=== PATIENT | male | born 1955 | race Caucasian/White ===

== ENCOUNTER 2016-07-01 12:53 | Day surgery (SDC) | payer OTHER ==
[~2016-07-01] VITALS: Ht 182.9 cm; Wt 92.0 kg
[~2016-07-01 12:53] MED LIST: ACCUCHECK; AFRIN15 ML NS; ALBUTEROL SULF8.5 GM IH; ALLERGY25 M2 PO; AMARYL2 MG PO; AMBIEN CR12.5 MG PO; AMBIEN10 M1 PO; ASPIR 8181 M1 PO; ASPIR-LOW81 MG PO; ASPIRIN E.C.81 M2 PO; ASPIRIN81 M1 PO; ATRIPLA1 TAB PO; AVENTYL,PAMELOR50 MG PO; Aspirin E.C. PO; Atripla PO; BACTRIM DS PO; BACTRIM,SEPT1 TABLET PO; BOTOX100 UNITS IJ; CARAFATE1 GM PO; CARBIDOPA-LEVO1 EAC7 PO; CARBIDOPA/LEVO1 EACH PO; CLOBETASOL TP; COMBIVENT RESPIM4 GM IH; CRESTOR5 MG PO; Chronulac,Cephulac,E PO; Combivent IH; DIAZEPAM5 MG PO; DuoNeb IH; EFFEXOR XR150 MG PO; EMBELINE15 GM; ENDOCET 10-3251 EACH PO; Ecotrin PO; FISH OIL 1,0001 EAC7 PO; GLIMEPIRIDE1 MG PO; GLIMEPIRIDE2 MG PO; HALOBETASOL PROP; HYDROCHLOROTHIA25 MG PO; HYDROXYZINE HCL50 MG PO; Hydrodiuril,Oretic,E PO; IBUPROFEN800 MG PO; IMITREX100 MG PO; ISENTRESS400 MG PO; KADIAN10 MG PO; KENLAOG,ARISTOC60 ML TP; KEPPRA500 MG PO; KETOCONAZOLE120 ML TP; KLOR-CON 88 ME1 PO; KLOR-CON 88 MEQ PO; LANTUS 10100 UNITS/ SC; LANTUS 3 M100 UNITS1 SC; LEVAQUIN750 MG PO; LEVOTHROID,SY0.05 MG PO; LEVOTHYROXINE50 MCG PO; LIDODERM 5% P1 PATCH TD; LOPERAMIDE2 M1 PO; LOPERAMIDE2 MG PO; LOPRESSOR12.5 MG PO; Levaquin PO; Levothroid,Synthroid PO; METFORMIN HCL500 MG PO; METHADONE5 MG; METOPROLOL SUCC25 MG PO; MOTRIN800 MG PO; MS CONTIN,ORAMO15 M1 PO; MYCELEX15 GM TP; Methadone PO; Motrin PO; NATALCARE PLUS1 EACH PO; NEURONTIN400 MG PO; NIZORAL 2% CREA15 GM PO; NIZORAL SHAMPO120 ML TP; NORTRIPTYLINE H75 MG PO; NORVIR100 MG PO; Neurontin PO; OMEGA 3,6,9 PO; OXECTA5 MG PO; OXYCODONE HCL5 MG PO; OXYCODONE5 MG PO; PRAVACHOL40 M1 PO; PREDNISONE20 MG PO; PREZCOBIX 8001 EACH PO; PREZISTA800 MG PO; PRILOSEC20 MG PO; PRILOSEC40 MG PO; PRINIVIL10 MG PO; PROAIR HFA8.5 GM IH; PROZAC20 MG PO; PROZAC40 MG PO; RENA-VITE RX T1 EACH PO; REQUIP XL4 MG PO; REQUIP1 MG PO; REQUIP3 MG PO; REQUIP4 MG PO; ROCALTROL0.5 MCG PO; ROPINIROLE HCL4 MG PO; Requip PO; SEROQUEL XR150 MG PO; SEROQUEL XR50 MG PO; SERTRALINE HCL100 MG PO; SINEMET 25-1001 EACH PO; SPIRIVA1 INHALATI IH; SULFAMETHOXAZO1 EAC1 PO; TEMOVATE 0.05%30 GM TP; TOPIRAMATE25 MG PO; TRAMADOL HCL50 MG PO; TRILEPTAL300 MG PO; TRUVADA1 TABLET PO; Temovate 0.05% Cream TP; ULTRAVATE15 G1 TP; VALIUM10 MG PO; VALIUM5 MG PO; VENLAFAXINE225 MG PO; VIAGRA100 MG PO; VITAMIN D12 PO; VITAMIN D2400 UNIT PO; VOL-CARE PO; Vitamin B-12 PO; XANAX0.5 MG PO; Xanax PO; ZESTRIL,PRINIVI10 M1 PO; ZESTRIL2.5 MG PO; ZOCOR20 MG PO; ZOCOR5 MG PO; ZOLPIDEM TART12.5 MG PO; Zestril,Prinivil PO; [UNRECOGNIZED DRUG - OTHER]; [UNRECOGNIZED DRUG - OTHER]; oxyCODONE PO
[2016-07-01 13:58] LABS: POINT-OF-CARE METER ID UU14174212
== END 2016-07-01 14:46 | disposition home or self-care (01) ==
LOC: PAIN 12:53 → SDC 13:15 → PAIN 14:46
PROVIDERS: Anesthesiology Pain Medicine
DX: M47.896 Other spondylosis, lumbar region (principal); M51.26 Other intervertebral disc displacement, lumbar region; M54.16 Radiculopathy, lumbar region; F41.1 Generalized anxiety disorder; M79.1 Myalgia; I10 Essential (primary) hypertension; G62.9 Polyneuropathy, unspecified; Z79.891 Long term (current) use of opiate analgesic; M43.02 Spondylolysis, cervical region
CPT/HCPCS: 82948; J1030; J2250; J3010; S0020

== ENCOUNTER 2016-07-08 08:54 | Day surgery (SDC) | payer OTHER ==
[~2016-07-08] VITALS: Ht 182.9 cm; Wt 91.2 kg
[2016-07-08 10:31] LABS: POINT-OF-CARE METER ID UU14174212
== END 2016-07-08 11:15 | disposition home or self-care (01) ==
LOC: PAIN 08:54
PROVIDERS: Anesthesiology Pain Medicine
PROC: 015B3ZZ Destruction of Lumbar Nerve, Percutaneous Approach (ICD-10-PCS; principal; 2016-07-08)
DX: M47.816 Spondylosis without myelopathy or radiculopathy, lumbar region (principal); M51.36 Other intervertebral disc degeneration, lumbar region; Z79.891 Long term (current) use of opiate analgesic; M51.26 Other intervertebral disc displacement, lumbar region; M54.16 Radiculopathy, lumbar region; G62.9 Polyneuropathy, unspecified; Z87.891 Personal history of nicotine dependence; B20 Human immunodeficiency virus [HIV] disease; I10 Essential (primary) hypertension; Z86.73 Personal history of transient ischemic attack (TIA), and cerebral infarction without residual deficits; Z86.19 Personal history of other infectious and parasitic diseases; F10.21 Alcohol dependence, in remission; Z88.8 Allergy status to other drugs, medicaments and biological substances
CPT/HCPCS: 82948; J1030; J2250; J3010; S0020

== ENCOUNTER 2016-12-03 16:39 | Inpatient (IN) | payer OTHER ==
[~2016-12-03] VITALS: Ht 182.9 cm; Wt 90.8 kg
[2016-12-03 17:36] LABS: EOSINOPHIL (%) 0 % (0-5); HEMATOCRIT 36.2 % (38.0-50.0); IMMATURE GRANULOCYTE (%) 0.7 % (0.0-0.7); INSTRUMENT ABS NEUTROPHIL CT 3.9 K/uL; LYMPHOCYTE COUNT 0.4 K/uL (1.0-2.8); MCH 31.8 PG (29.0-34.0); MCHC 34.3 G/DL (30.0-36.0); MCV 92.8 FL (86-99); MEAN PLAT.VOLUME 11.3 uM^3 (9.0-12.4); MONOCYTE (%) 1.6 % (3-12); MONOCYTE COUNT 0.1 K/uL (0-0.8); NEUTROPHIL (%) 89.1 % (45-76); NEUTROPHIL COUNT 3.9 K/uL (1.8-6.4); PLATELET COUNT 81 K/uL (156-360); RBC DIS.WIDTH-CV 12.7 % (11.8-14.6); RBC DIS.WIDTH-SD 42.6 % (39-53); WHITE BLOOD COUNT 4.4 K/uL (4.1-10.2)
[2016-12-03 17:48] LABS: INTER. NORMALIZED RATIO 1.2; PROTHROMBIN TIME 13.7 SEC (10.2-12.9)
[2016-12-03 17:51] LABS: CHLORIDE 107 mEq/L (99-109); POTASSIUM 4.3 mEq/L (3.7-5.4); PTT 30.2 SEC (25-37); SODIUM 137 mEq/L (136-147)
[2016-12-03 17:55] LABS: ANION GAP 10 MEQ/L (2-14)
[2016-12-03 17:56] LABS: TOTAL BILIRUBIN 0.7 mg/dL (0.0-1.0)
[2016-12-03 17:57] LABS: ALKALINE PHOSPHATASE 56 IU/L (3-129); GFR ESTIMATE (CALCULATED) > 59 mL/min/
[2016-12-03 17:58] LABS: UREA NITROGEN (BUN) 17 mg/dL (9-23)
[2016-12-03 18:01] LABS: GLUCOSE 428 mg/dL (70-99); LIPASE 33 U/L (1.0-51.0); TROP-I INTERPRETATION NEGATIVE; TROPONIN-I 0.02 ng/mL (0.0-0.30)
[2016-12-03 19:53] LABS: POINT-OF-CARE METER ID UU14100415
[2016-12-03] MEDS ORDERED: BUSPAR15 MG PO (20:37)
[2016-12-03] MEDS ORDERED: FLEXERIL10 MG PO (20:38)
[2016-12-03] MEDS ORDERED: TOPAMAX100 MG PO (20:41)
[2016-12-03] MEDS ORDERED: UREA198.6 GM TP (20:41)
[2016-12-03] MEDS ORDERED: DUONEB 2.5-0.5 M3 ML AEROSOL (20:42)
[2016-12-03] MEDS ORDERED: SEROQUEL XR200 MG PO (20:42)
[2016-12-03 21:36] VITALS: BP 134/80
[2016-12-04] VITALS (8 sets, daily range): BP systolic 106–153; BP diastolic 57–82
[2016-12-04 01:03] LABS: TROP-I INTERPRETATION POSITIVE
[2016-12-04 01:04] LABS: TROPONIN-I 1.73 ng/mL (0.0-0.30)
[2016-12-04 02:03] LABS: METH RESISTANT S AUREUS PCR NEGATIVE (NEGATIVE)
[2016-12-04 02:04] LABS: PROBE CHECK PASS; SPECIMEN PROCESSING CONTROL PASS
[2016-12-04 05:30] LABS: HEMATOCRIT 31.7 % (38.0-50.0); MCH 32.7 PG (29.0-34.0); MCHC 35.3 G/DL (30.0-36.0); MCV 92.7 FL (86-99); MEAN PLAT.VOLUME 11.1 uM^3 (9.0-12.4); PLATELET COUNT 85 K/uL (156-360); RBC DIS.WIDTH-CV 12.8 % (11.8-14.6); RBC DIS.WIDTH-SD 42.9 % (39-53); RED BLOOD COUNT 3.42 M/uL (4.00-5.50); WHITE BLOOD COUNT 7.8 K/uL (4.1-10.2)
[2016-12-04 05:58] LABS: ALKALINE PHOSPHATASE 43 IU/L (3-129); ANION GAP 7 MEQ/L (2-14); CHLORIDE 110 MEQ/L (99-109); GFR ESTIMATE (CALCULATED) > 59 mL/min/; HDL CHOLESTEROL 27 MG/DL (Desirable>=40); LDL CHOLESTEROL 48 mg/dL (Desirable<100); NON-HDL CHOLESTEROL 71 mg/dL (Desirable<160); POTASSIUM 4.1 MEQ/L (3.7-5.4); SAMPLE HEMOLYSIS CHECK 0; SAMPLE ICTERIC CHECK 0; SAMPLE LIPEMIA CHECK 0; SODIUM 138 MEQ/L (136-147); TOTAL BILIRUBIN 0.8 MG/DL (0.0-1.0); TOTAL CHOLESTEROL 98 mg/dL (Desirable<200); TRIGLYCERIDES 116 MG/DL (Normal: <150); UREA NITROGEN (BUN) 16 mg/dL (9-23)
[2016-12-04 06:00] LABS: GLUCOSE 161 mg/dL (70-99)
[2016-12-04 06:20] LABS: TROP-I INTERPRETATION POSITIVE; TROPONIN-I 3.93 ng/mL (0.0-0.30)
[2016-12-04 07:55] LABS: EOSINOPHIL ABS CT 0.1; PLAT.SUFFICIENCY DECREASED
[2016-12-04 08:22] LABS: POINT-OF-CARE METER ID UU14162513
[2016-12-04 10:39] LABS: SMEAR EVALUATION YES
[2016-12-04 12:05] LABS: TROP-I INTERPRETATION POSITIVE; TROPONIN-I 3.19 ng/mL (0.0-0.30)
[2016-12-04 12:46] LABS: POINT-OF-CARE METER ID UU13113698
[2016-12-04] MEDS ORDERED: DESCOVY 200-251 EACH PO (13:16)
[2016-12-04 16:16] LABS: POINT-OF-CARE METER ID UU14174216
[2016-12-04 16:54] LABS: TROP-I INTERPRETATION POSITIVE
[2016-12-05] VITALS (7 sets, daily range): BP systolic 100–138; BP diastolic 62–80
[2016-12-05 06:26] LABS: TROP-I INTERPRETATION POSITIVE; TROPONIN-I 3.61 ng/mL (0.0-0.30)
[2016-12-05 08:07] LABS: POINT-OF-CARE METER ID UU13113781
[2016-12-05 10:26] LABS: EOSINOPHIL (%) 0.8 % (0-5); EOSINOPHIL COUNT 0.1 K/uL (0-0.3); IMMATURE GRANULOCYTE (%) 0.2 % (0.0-0.7); INSTRUMENT ABS NEUTROPHIL CT 3.2 K/uL; LYMPHOCYTE COUNT 2.3 K/uL (1.0-2.8); MCH 32.9 PG (29.0-34.0); MCHC 34.5 G/DL (30.0-36.0); MCV 95.1 FL (86-99); MEAN PLAT.VOLUME 12.7 uM^3 (9.0-12.4); MONOCYTE (%) 9.2 % (3-12); MONOCYTE COUNT 0.6 K/uL (0-0.8); NEUTROPHIL (%) 52.4 % (45-76); NEUTROPHIL COUNT 3.2 K/uL (1.8-6.4); PLATELET COUNT 81 K/uL (156-360); RBC DIS.WIDTH-CV 13.2 % (11.8-14.6); RBC DIS.WIDTH-SD 45.5 % (39-53); RED BLOOD COUNT 3.47 M/uL (4.00-5.50); WHITE BLOOD COUNT 6.1 K/uL (4.1-10.2)
[2016-12-05 11:14] LABS: ANION GAP 10 MEQ/L (2-14); CHLORIDE 110 MEQ/L (99-109); GFR ESTIMATE (CALCULATED) > 59 mL/min/; GLUCOSE 156 mg/dL (70-99); POTASSIUM 3.7 MEQ/L (3.7-5.4); SAMPLE HEMOLYSIS CHECK 0; SAMPLE ICTERIC CHECK 0; SAMPLE LIPEMIA CHECK 0; SODIUM 139 MEQ/L (136-147); UREA NITROGEN (BUN) 15 mg/dL (9-23)
[2016-12-05 11:22] LABS: POINT-OF-CARE METER ID UU13113781
[2016-12-05 16:47] LABS: POINT-OF-CARE METER ID UU13113781
[2016-12-06] VITALS (7 sets, daily range): BP systolic 111–165; BP diastolic 62–83
[2016-12-06 08:05] LABS: POINT-OF-CARE METER ID UU13113698
[2016-12-06 10:14] LABS: POINT-OF-CARE METER ID UU13113698
[2016-12-06 11:06] LABS: POINT-OF-CARE METER ID UU13113698
[2016-12-06 17:58] LABS: POINT-OF-CARE METER ID UU13113781
[2016-12-06 21:37] LABS: POINT-OF-CARE METER ID UU13113781
[2016-12-07 04:14] VITALS: BP 120/67
[2016-12-07 07:35] VITALS: BP 192/90
[2016-12-07 07:35] LABS: POINT-OF-CARE METER ID UU13113781
[2016-12-07 09:08] VITALS: BP 98/65
[2016-12-07 11:18] VITALS: BP 117/70
[2016-12-07 11:27] LABS: POINT-OF-CARE METER ID UU13113781
[2016-12-07] MEDS ORDERED: CLOPIDOGREL75 MG PO (14:26)
[2016-12-07] MEDS ORDERED: LOPRESSOR25 MG PO (14:26)
[2016-12-07] MEDS ORDERED: NITROSTAT0.4 MG SL (15:08)
== END 2016-12-07 15:13 | disposition home or self-care (01) | DRG 246 ==
LOC: EME 16:39 → EDOF 20:14 → ENRESERV 20:17 → 5WEST 21:22 → 4EAST 12-04 10:29 → ENRESERV 12-04 10:31 → 4EAST 12-04 12:26
PROVIDERS: Emergency Medicine; Internal Medicine; Internal Medicine Cardiovascular Disease; Physician Assistant Medical; Student in an Organized Health Care Education/Training Program
DX: I21.4 Non-ST elevation (NSTEMI) myocardial infarction (principal); I25.10 Atherosclerotic heart disease of native coronary artery without angina pectoris; E11.65 Type 2 diabetes mellitus with hyperglycemia; I12.9 Hypertensive chronic kidney disease with stage 1 through stage 4 chronic kidney disease, or unspecified chronic kidney disease; N18.3 Chronic kidney disease, stage 3 (moderate); E11.22 Type 2 diabetes mellitus with diabetic chronic kidney disease; I44.0 Atrioventricular block, first degree; D69.6 Thrombocytopenia, unspecified; F11.20 Opioid dependence, uncomplicated; B20 Human immunodeficiency virus [HIV] disease; E11.42 Type 2 diabetes mellitus with diabetic polyneuropathy; R16.1 Splenomegaly, not elsewhere classified; E78.5 Hyperlipidemia, unspecified; J44.9 Chronic obstructive pulmonary disease, unspecified; E03.9 Hypothyroidism, unspecified; K74.60 Unspecified cirrhosis of liver; K59.03 Drug induced constipation; T40.605A Adverse effect of unspecified narcotics, initial encounter; K21.9 Gastro-esophageal reflux disease without esophagitis; M50.10 Cervical disc disorder with radiculopathy, unspecified cervical region; M51.16 Intervertebral disc disorders with radiculopathy, lumbar region; G89.29 Other chronic pain; F14.10 Cocaine abuse, uncomplicated; Z86.73 Personal history of transient ischemic attack (TIA), and cerebral infarction without residual deficits; G43.109 Migraine with aura, not intractable, without status migrainosus; Z72.0 Tobacco use; Z79.4 Long term (current) use of insulin; Z86.19 Personal history of other infectious and parasitic diseases; Z82.49 Family history of ischemic heart disease and other diseases of the circulatory system; Z82.3 Family history of stroke; Z80.1 Family history of malignant neoplasm of trachea, bronchus and lung; Z80.8 Family history of malignant neoplasm of other organs or systems
CPT/HCPCS: 71020; 76705; 80048; 80053; 80061; 81003; 82140; 82948; 83690; 83880; 84443; 84484; 85007; 85025; 85027; 85060; 85347; 85610; 85730; 87641; 93005; 94640; 94640 76; 99202; 99281; 99285; C1725; C1769; C1874; C1887; G0378; J0583; J1644; J1650; J1815; J2250; J2270; J3010; J3480; J7030; J7050

== ENCOUNTER 2017-01-24 10:32 | Observation (INO) | payer OTHER ==
[~2017-01-24] VITALS: Ht 182.9 cm; Wt 93.2 kg
[~2017-01-24 10:32] MED LIST changes: +BUSPAR15 MG PO; +CLOPIDOGREL75 MG PO; +DESCOVY 200-251 EACH PO; +DUONEB 2.5-0.5 M3 ML AEROSOL; +FLEXERIL10 MG PO; +LOPRESSOR25 MG PO; +NITROSTAT0.4 MG SL; +SEROQUEL XR200 MG PO; +TOPAMAX100 MG PO; +UREA198.6 GM TP
[2017-01-24 11:10] LABS: HEMATOCRIT 35.3 % (38.0-50.0); MCHC 33.7 G/DL (30.0-36.0); MCV 94.9 FL (86-99); MEAN PLAT.VOLUME 10.1 uM^3 (9.0-12.4); PLATELET COUNT 90 K/uL (156-360); RBC DIS.WIDTH-CV 13.5 % (11.8-14.6); RBC DIS.WIDTH-SD 46.1 % (39-53); RED BLOOD COUNT 3.72 M/uL (4.00-5.50); WHITE BLOOD COUNT 4.6 K/uL (4.1-10.2)
[2017-01-24 11:22] LABS: CHLORIDE 110 mEq/L (99-109)
[2017-01-24 11:23] LABS: POTASSIUM 4.1 mEq/L (3.7-5.4); SODIUM 139 mEq/L (136-147)
[2017-01-24 11:24] LABS: GLUCOSE 189 mg/dL (70-99)
[2017-01-24 11:26] LABS: ANION GAP 7 MEQ/L (2-14)
[2017-01-24 11:28] LABS: GFR ESTIMATE (CALCULATED) > 59 mL/min/
[2017-01-24 11:29] LABS: UREA NITROGEN (BUN) 14 mg/dL (9-23)
[2017-01-24 11:32] LABS: TROP-I INTERPRETATION NEGATIVE; TROPONIN-I < 0.01 ng/mL (0.0-0.30)
[2017-01-24] MEDS ORDERED: LOPRESSOR25 MG PO (13:19)
[2017-01-24] MEDS ORDERED: PROBIOTIC1 EAC1 PO (13:22)
[2017-01-24] MEDS ORDERED: SENNA8.6 MG PO (13:23)
[2017-01-24] MEDS ORDERED: ALBUTEROL2.5 MG/3 M IH (13:24)
[2017-01-24 13:57] VITALS: BP 152/79
[2017-01-24 16:15] VITALS: BP 151/87
[2017-01-24 18:00] LABS: TROP-I INTERPRETATION NEGATIVE; TROPONIN-I < 0.01 ng/mL (0.0-0.30)
[2017-01-24 20:00] VITALS: BP 177/84
[2017-01-24 23:55] VITALS: BP 109/63
[2017-01-25 02:40] LABS: TROP-I INTERPRETATION NEGATIVE; TROPONIN-I < 0.01 ng/mL (0.0-0.30)
[2017-01-25 04:36] VITALS: BP 94/50
[2017-01-25 07:30] VITALS: BP 109/62
[2017-01-25 08:17] LABS: HEMATOCRIT 32.4 % (38.0-50.0); MCH 33.6 PG (29.0-34.0); MCHC 35.2 G/DL (30.0-36.0); MCV 95.6 FL (86-99); MEAN PLAT.VOLUME 10.2 uM^3 (9.0-12.4); PLATELET COUNT 85 K/uL (156-360); RBC DIS.WIDTH-CV 13.7 % (11.8-14.6); RBC DIS.WIDTH-SD 47.6 % (39-53); RED BLOOD COUNT 3.39 M/uL (4.00-5.50); WHITE BLOOD COUNT 5.3 K/uL (4.1-10.2)
[2017-01-25 08:41] LABS: ANION GAP 5 MEQ/L (2-14); CHLORIDE 110 MEQ/L (99-109); GFR ESTIMATE (CALCULATED) > 59 mL/min/; GLUCOSE 149 mg/dL (70-99); POTASSIUM 3.8 MEQ/L (3.7-5.4); SAMPLE HEMOLYSIS CHECK 0; SAMPLE ICTERIC CHECK 0; SAMPLE LIPEMIA CHECK 0; SODIUM 140 MEQ/L (136-147); UREA NITROGEN (BUN) 19 mg/dL (9-23)
[2017-01-25 09:36] LABS: TROP-I INTERPRETATION NEGATIVE; TROPONIN-I 0.02 ng/mL (0.0-0.30)
[2017-01-25 12:00] VITALS: BP 113/56
[2017-01-25] MEDS ORDERED: MOTRIN800 MG PO (12:31)
[2017-01-25] MEDS ORDERED: COREG3.125 M1 PO (12:33)
[2017-01-25] MEDS ORDERED: IMDUR60 MG PO (12:33)
== END 2017-01-25 14:48 | disposition home or self-care (01) ==
LOC: EME 10:32 → 5WEST 12:29 → EDOF 12:29 → ENRESERV 12:29 → EDOF 12:29 → ENRESERV 12:32 → 5WEST 13:42
PROVIDERS: Internal Medicine; Internal Medicine Cardiovascular Disease; Nurse Practitioner Adult Health
DX: R07.9 Chest pain, unspecified (principal); I25.10 Atherosclerotic heart disease of native coronary artery without angina pectoris; I25.2 Old myocardial infarction; Z95.5 Presence of coronary angioplasty implant and graft; R20.0 Anesthesia of skin; I95.9 Hypotension, unspecified; E11.42 Type 2 diabetes mellitus with diabetic polyneuropathy; Z21 Asymptomatic human immunodeficiency virus [HIV] infection status; D69.6 Thrombocytopenia, unspecified; E78.5 Hyperlipidemia, unspecified; G47.33 Obstructive sleep apnea (adult) (pediatric); J44.9 Chronic obstructive pulmonary disease, unspecified; Z86.19 Personal history of other infectious and parasitic diseases; K21.9 Gastro-esophageal reflux disease without esophagitis; I10 Essential (primary) hypertension; Z86.31 Personal history of diabetic foot ulcer; E03.9 Hypothyroidism, unspecified; Z86.73 Personal history of transient ischemic attack (TIA), and cerebral infarction without residual deficits; G25.81 Restless legs syndrome; F41.9 Anxiety disorder, unspecified; Z79.4 Long term (current) use of insulin; Z87.891 Personal history of nicotine dependence; Z87.898 Personal history of other specified conditions
CPT/HCPCS: 71020; 80048; 82948; 84484; 85027; 93005; 99281; 99285; G0378; J2270; J7030

== ENCOUNTER 2017-02-17 12:36 | Inpatient (IN) | payer OTHER ==
[~2017-02-17] VITALS: Ht 180.3 cm; Wt 92.4 kg
[~2017-02-17 12:36] MED LIST changes: +ALBUTEROL2.5 MG/3 M IH; +COREG3.125 M1 PO; +IMDUR60 MG PO; +PROBIOTIC1 EAC1 PO; +SENNA8.6 MG PO
[2017-02-17 13:48] LABS: HEMATOCRIT 34.8 % (38.0-50.0); MCHC 34.8 G/DL (30.0-36.0); MCV 92.1 FL (86-99); MEAN PLAT.VOLUME 10.5 uM^3 (9.0-12.4); PLATELET COUNT 85 K/uL (156-360); RBC DIS.WIDTH-CV 12.8 % (11.8-14.6); RBC DIS.WIDTH-SD 43.2 % (39-53); RED BLOOD COUNT 3.78 M/uL (4.00-5.50); WHITE BLOOD COUNT 5.1 K/uL (4.1-10.2)
[2017-02-17 13:57] LABS: CHLORIDE 107 mEq/L (99-109); POTASSIUM 3.5 mEq/L (3.7-5.4); SODIUM 137 mEq/L (136-147)
[2017-02-17 13:58] LABS: GLUCOSE 303 mg/dL (70-99)
[2017-02-17 14:00] LABS: ANION GAP 9 MEQ/L (2-14)
[2017-02-17 14:02] LABS: GFR ESTIMATE (CALCULATED) > 59 mL/min/; SERUM ETHYL ALCOHOL < 10 mg/dL
[2017-02-17 14:03] LABS: UREA NITROGEN (BUN) 11 mg/dL (9-23)
[2017-02-17 14:08] LABS: ADD MEDTOX COMMENT Y; AMPHETAMINE NEGATIVE (500 ng/mL); BARBITURATES NEGATIVE (200 ng/mL); BENZODIAZEPINES NEGATIVE (150 ng/mL); COCAINE NEGATIVE (150 ng/mL); INTERNAL CONTROLS VALID? YES; METHADONE NEGATIVE (200 ng/mL); METHAMPHETAMINE NEGATIVE (500 ng/mL); OPIATES (MORPHINE) PRESUMPTIVE POSITIVE (100 ng/mL); OXYCODONE PRESUMPTIVE POSITIVE (100 ng/mL); PHENCYCLIDINE NEGATIVE (25 ng/mL); PROPOXYPHENE NEGATIVE (300 ng/mL); THC CANNABINOIDS NEGATIVE (50 ng/mL); TRICYCLIC ANTIDEPRESSANTS PRESUMPTIVE POSITIVE (300 ng/mL)
[2017-02-17 22:50] VITALS: BP 131/78
[2017-02-18 06:43] LABS: POINT-OF-CARE METER ID UU14188576
[2017-02-18] MEDS ORDERED: BUSPAR30 MG PO (12:15)
[2017-02-18 17:22] LABS: POINT-OF-CARE METER ID UU14188576
[2017-02-18 20:38] LABS: POINT-OF-CARE METER ID UU14188576; POINT-OF-CARE USER ID ENVTLS63
[2017-02-19 06:23] LABS: POINT-OF-CARE METER ID UU14188576; POINT-OF-CARE USER ID ENVTLS63
[2017-02-19 07:42] VITALS: BP 122/80
[2017-02-19 10:50] VITALS: BP 107/70
[2017-02-19 10:55] VITALS: BP 87/58
[2017-02-19] MEDS ORDERED: QUETIAPINE FUM100 MG PO (11:15)
[2017-02-20] MEDS ORDERED: ASPIR-LOW81 MG PO (07:13)
[2017-02-20] MEDS ORDERED: VENLAFAXINE225 MG PO (09:34)
[2017-02-20] MEDS ORDERED: QUETIAPINE FUM100 MG PO (09:34)
[2017-02-20] MEDS ORDERED: BUSPAR30 MG PO (09:34)
== END 2017-02-19 11:09 | DRG 882 ==
LOC: EME 12:36 → 1WEST 15:48 → EDOF 15:48 → ENRESERV 22:38 → 1WEST 22:42
PROVIDERS: Emergency Medicine; Psychiatry & Neurology Psychiatry
DX: F43.25 Adjustment disorder with mixed disturbance of emotions and conduct (principal); R07.9 Chest pain, unspecified; F60.9 Personality disorder, unspecified; E11.40 Type 2 diabetes mellitus with diabetic neuropathy, unspecified; Z21 Asymptomatic human immunodeficiency virus [HIV] infection status; I10 Essential (primary) hypertension; E78.5 Hyperlipidemia, unspecified; J44.9 Chronic obstructive pulmonary disease, unspecified; K21.9 Gastro-esophageal reflux disease without esophagitis; G25.81 Restless legs syndrome; I25.2 Old myocardial infarction; Z86.73 Personal history of transient ischemic attack (TIA), and cerebral infarction without residual deficits; Z87.891 Personal history of nicotine dependence; Z79.02 Long term (current) use of antithrombotics/antiplatelets; Z79.4 Long term (current) use of insulin; Z91.14 Patient's other noncompliance with medication regimen
CPT/HCPCS: 80048; 82948; 84999; 85027; 90837; 97150 GO; 97165 GO; 99281; 99285; G0480; J1630; J1815; J2060

== ENCOUNTER 2017-02-19 11:03 | Observation (INO) | payer OTHER ==
[~2017-02-19] VITALS: Ht 182.9 cm; Wt 88.7 kg
[~2017-02-19 11:03] MED LIST changes: +BUSPAR30 MG PO
[2017-02-19] MEDS ORDERED: QUETIAPINE FUM100 MG PO (11:15)
[2017-02-19 11:20] VITALS: BP 103/66
[2017-02-19 12:04] LABS: HEMATOCRIT 38.7 % (38.0-50.0); MCH 31.8 PG (29.0-34.0); MCHC 33.9 G/DL (30.0-36.0); MCV 93.9 FL (86-99); MEAN PLAT.VOLUME 10.4 uM^3 (9.0-12.4); RBC DIS.WIDTH-CV 13.2 % (11.8-14.6); RBC DIS.WIDTH-SD 45.1 % (39-53); RED BLOOD COUNT 4.12 M/uL (4.00-5.50); WHITE BLOOD COUNT 6.9 K/uL (4.1-10.2)
[2017-02-19 12:12] LABS: PLATELET COUNT 113 K/uL (156-360)
[2017-02-19 12:35] LABS: ANION GAP 9 MEQ/L (2-14); CHLORIDE 109 MEQ/L (99-109); GFR ESTIMATE (CALCULATED) > 59 mL/min/; POTASSIUM 3.6 MEQ/L (3.7-5.4); SAMPLE HEMOLYSIS CHECK 0; SAMPLE ICTERIC CHECK 0; SAMPLE LIPEMIA CHECK 0; SODIUM 139 MEQ/L (136-147); UREA NITROGEN (BUN) 16 mg/dL (9-23)
[2017-02-19 12:38] LABS: TROP-I INTERPRETATION NEGATIVE; TROPONIN-I 0.01 ng/mL (0.0-0.30)
[2017-02-19 12:40] LABS: GLUCOSE 146 mg/dL (70-99)
[2017-02-19 15:51] VITALS: BP 118/75
[2017-02-19 17:11] LABS: POINT-OF-CARE METER ID UU13113831
[2017-02-19 17:27] LABS: TROP-I INTERPRETATION NEGATIVE; TROPONIN-I < 0.01 ng/mL (0.0-0.30)
[2017-02-19 20:00] VITALS: BP 133/75
[2017-02-19 21:30] LABS: POINT-OF-CARE METER ID UU14162513
[2017-02-19 22:33] VITALS: BP 111/68
[2017-02-19 23:32] LABS: TROP-I INTERPRETATION NEGATIVE; TROPONIN-I < 0.01 ng/mL (0.0-0.30)
[2017-02-20 03:09] VITALS: BP 105/59
[2017-02-20 05:20] LABS: AMPHETAMINES QUANT VALUE 0 NG/ML; BARBITUATES QUANT VALUE 0 NG/ML; BENZODIAZEPINES QUANT VALUE 0 NG/ML; BENZODIAZEPINES, URINE SCREEN Negative (200 ng/mL); MARIJUANA QUANT VALUE 0 NG/ML; PHENCYCLIDINE QUANT VALUE 0 NG/ML
[2017-02-20] MEDS ORDERED: ASPIR-LOW81 MG PO (07:13)
[2017-02-20 07:51] VITALS: BP 113/77
[2017-02-20 08:09] LABS: POINT-OF-CARE METER ID UU13113831
[2017-02-20] MEDS ORDERED: BUSPAR30 MG PO (09:34)
[2017-02-20] MEDS ORDERED: QUETIAPINE FUM100 MG PO (09:34)
[2017-02-20] MEDS ORDERED: VENLAFAXINE225 MG PO (09:34)
== END 2017-02-20 11:11 | disposition home or self-care (01) ==
LOC: ENRESERV 11:03 → 5WEST 11:03
PROVIDERS: Hospitalist
DX: R07.9 Chest pain, unspecified (principal); I25.10 Atherosclerotic heart disease of native coronary artery without angina pectoris; Z95.5 Presence of coronary angioplasty implant and graft; I25.82 Chronic total occlusion of coronary artery; I25.2 Old myocardial infarction; J44.9 Chronic obstructive pulmonary disease, unspecified; Z21 Asymptomatic human immunodeficiency virus [HIV] infection status; I10 Essential (primary) hypertension; E78.5 Hyperlipidemia, unspecified; Z79.82 Long term (current) use of aspirin; F19.11 Other psychoactive substance abuse, in remission; Z72.89 Other problems related to lifestyle; R45.851 Suicidal ideations; F43.23 Adjustment disorder with mixed anxiety and depressed mood; F60.9 Personality disorder, unspecified; E11.9 Type 2 diabetes mellitus without complications; Z79.4 Long term (current) use of insulin
CPT/HCPCS: 80048; 80306 90; 82948; 84484; 85027; 93005; G0378

== ENCOUNTER 2017-02-22 23:59 | Observation (INO) | payer OTHER ==
[~2017-02-22] VITALS: Ht 182.9 cm; Wt 90.8 kg
[~2017-02-22 23:59] MED LIST changes: +QUETIAPINE FUM100 MG PO
[2017-02-23 00:53] LABS: EOSINOPHIL (%) 1.6 % (0-5); EOSINOPHIL COUNT 0.1 K/uL (0-0.3); IMMATURE GRANULOCYTE (%) 0.2 % (0.0-0.7); INSTRUMENT ABS NEUTROPHIL CT 2.9 K/uL; LYMPHOCYTE COUNT 1.5 K/uL (1.0-2.8); MCH 32.2 PG (29.0-34.0); MCV 92.1 FL (86-99); MEAN PLAT.VOLUME 10.3 uM^3 (9.0-12.4); MONOCYTE (%) 9.4 % (3-12); MONOCYTE COUNT 0.5 K/uL (0-0.8); NEUTROPHIL (%) 58.3 % (45-76); NEUTROPHIL COUNT 2.9 K/uL (1.8-6.4); PLATELET COUNT 92 K/uL (156-360); RBC DIS.WIDTH-SD 41.6 % (39-53); RED BLOOD COUNT 3.91 M/uL (4.00-5.50)
[2017-02-23 01:05] LABS: CHLORIDE 107 mEq/L (99-109); POTASSIUM 3.9 mEq/L (3.7-5.4); SODIUM 137 mEq/L (136-147)
[2017-02-23 01:06] LABS: GLUCOSE 285 mg/dL (70-99)
[2017-02-23 01:08] LABS: ANION GAP 9 MEQ/L (2-14)
[2017-02-23 01:10] LABS: GFR ESTIMATE (CALCULATED) > 59 mL/min/
[2017-02-23 01:11] LABS: UREA NITROGEN (BUN) 9 mg/dL (9-23)
[2017-02-23 01:16] LABS: TROP-I INTERPRETATION NEGATIVE; TROPONIN-I < 0.01 ng/mL (0.0-0.30)
[2017-02-23 07:47] LABS: ADD MIUA? NO; BILIRUBIN NEGATIVE; BLOOD NEGATIVE; COLOR YELLOW ((YELLOW)); GLUCOSE (STRIP) 50; KETONES NEGATIVE; LEUKOCYTES NEGATIVE; NITRITE NEGATIVE; PROTEIN (STRIP) NEGATIVE; SPECIFIC GRAVITY 1.009 (1.000-1.030); UCUL ADDED? NO; UROBILINOGEN 0.2 MG/DL (0.2-1.0)
[2017-02-23] MEDS ORDERED: PRILOSEC20 MG PO (08:15)
[2017-02-23] MEDS ORDERED: NITRO-DUR1 EAC3 TD (08:16)
[2017-02-23] MEDS ORDERED: BENADRYL25 MG PO (08:18)
[2017-02-23] MEDS ORDERED: ANTI-DIARRHEA2 MG PO (08:19)
[2017-02-23] MEDS ORDERED: GLUCOPHAGE500 MG PO (08:19)
[2017-02-23] MEDS ORDERED: AMARYL2 MG PO (08:20)
[2017-02-23] MEDS ORDERED: SINEMET CR 25-1 EACH PO (08:20)
[2017-02-23] MEDS ORDERED: NARCAN4 MG NS (08:22)
[2017-02-23] MEDS ORDERED: PROAIR HFA8.5 GM IH (08:23)
[2017-02-23] MEDS ORDERED: COMBIVENT RESPIM4 GM IH (08:23)
[2017-02-23] MEDS ORDERED: QUETIAPINE FUM200 M1 PO (08:30)
[2017-02-23] MEDS ORDERED: TOPAMAX100 MG PO (08:30)
[2017-02-23] MEDS ORDERED: VISBIOME 112.51 EACH PO (08:32)
[2017-02-23] MEDS ORDERED: MOTRIN800 MG PO (08:33)
[2017-02-23 08:34] LABS: AMPHETAMINES QUANT VALUE 0 NG/ML; BARBITUATES QUANT VALUE 0 NG/ML; BENZODIAZEPINES QUANT VALUE 0 NG/ML; BENZODIAZEPINES, URINE SCREEN Negative (200 ng/mL); MARIJUANA QUANT VALUE 0 NG/ML; OPIATES QUANTITATIVE VALUE 0 NG/ML; PHENCYCLIDINE QUANT VALUE 0 NG/ML
[2017-02-23 11:43] LABS: POINT-OF-CARE METER ID UU13113747
[2017-02-23 13:15] VITALS: BP 103/68
[2017-02-23 14:17] LABS: D-DIMER ELISA < 150.00 ng/mLDDU (<230)
[2017-02-23 14:37] LABS: TROP-I INTERPRETATION NEGATIVE; TROPONIN-I 0.01 ng/mL (0.0-0.30)
[2017-02-23 16:00] VITALS: BP 125/70
== END 2017-02-23 17:36 | disposition home or self-care (01) ==
LOC: EME → EDBD 23:59 → EDOF 02-23 02:17 → ENRESERV 02-23 02:18 → 5WEST 02-23 12:50
PROVIDERS: Emergency Medicine; Hospitalist; Physician Assistant Medical
DX: R07.89 Other chest pain (principal); I10 Essential (primary) hypertension; B20 Human immunodeficiency virus [HIV] disease; E11.40 Type 2 diabetes mellitus with diabetic neuropathy, unspecified; D69.6 Thrombocytopenia, unspecified; I25.10 Atherosclerotic heart disease of native coronary artery without angina pectoris; I25.2 Old myocardial infarction; I25.82 Chronic total occlusion of coronary artery; Z95.5 Presence of coronary angioplasty implant and graft; F43.20 Adjustment disorder, unspecified; F32.9 Major depressive disorder, single episode, unspecified; F60.9 Personality disorder, unspecified; R20.0 Anesthesia of skin; Z86.19 Personal history of other infectious and parasitic diseases; G47.33 Obstructive sleep apnea (adult) (pediatric); E05.90 Thyrotoxicosis, unspecified without thyrotoxic crisis or storm; G89.29 Other chronic pain; Z87.891 Personal history of nicotine dependence; F10.11 Alcohol abuse, in remission; F19.11 Other psychoactive substance abuse, in remission; Z82.49 Family history of ischemic heart disease and other diseases of the circulatory system; Z91.14 Patient's other noncompliance with medication regimen; E78.5 Hyperlipidemia, unspecified; Z91.19 Patient's noncompliance with other medical treatment and regimen; Z86.73 Personal history of transient ischemic attack (TIA), and cerebral infarction without residual deficits; E11.65 Type 2 diabetes mellitus with hyperglycemia; K21.9 Gastro-esophageal reflux disease without esophagitis
CPT/HCPCS: 70450; 71020; 80048; 80306 90; 81003; 82948; 84484; 85025; 85379; 93005; 99281; 99285; G0378; J1200; J1650; J2765; J7030

== ENCOUNTER 2017-12-26 07:56 | Day surgery (SDC) | payer OTHER ==
[~2017-12-26] VITALS: Ht 182.9 cm; Wt 90.8 kg
[~2017-12-26 07:56] MED LIST changes: +ANTI-DIARRHEA2 MG PO; +BENADRYL25 MG PO; +GLUCOPHAGE1000 MG PO; +GLUCOPHAGE500 MG PO; +NARCAN4 MG NS; +NITRO-DUR1 EAC3 TD; +QUETIAPINE FUM200 M1 PO; +SINEMET CR 25-1 EACH PO; +VICTOZA 2-0.6 MG/0.1 SC; +VISBIOME 112.51 EACH PO
[2017-12-26] MEDS ORDERED: TRAMADOL HCL50 MG PO (08:24)
== END 2017-12-26 09:50 | disposition home or self-care (01) ==
LOC: PAIN 07:56 → SDC 08:30 → PAIN 09:50
PROVIDERS: Anesthesiology Pain Medicine
PROC: 3E0T3TZ Introduction of Destructive Agent into Peripheral Nerves and Plexi, Percutaneous Approach (ICD-10-PCS; principal; 2017-12-26)
PROC: BR141ZZ Fluoroscopy of Cervical Facet Joint(s) using Low Osmolar Contrast (ICD-10-PCS; principal; 2017-12-26)
DX: M47.812 Spondylosis without myelopathy or radiculopathy, cervical region (principal); M46.92 Unspecified inflammatory spondylopathy, cervical region; M47.816 Spondylosis without myelopathy or radiculopathy, lumbar region; E11.40 Type 2 diabetes mellitus with diabetic neuropathy, unspecified; Z79.4 Long term (current) use of insulin; M54.16 Radiculopathy, lumbar region; Z87.891 Personal history of nicotine dependence; Z86.73 Personal history of transient ischemic attack (TIA), and cerebral infarction without residual deficits; B20 Human immunodeficiency virus [HIV] disease; G47.30 Sleep apnea, unspecified; J44.9 Chronic obstructive pulmonary disease, unspecified; I25.10 Atherosclerotic heart disease of native coronary artery without angina pectoris; I25.2 Old myocardial infarction; Z95.5 Presence of coronary angioplasty implant and graft; Z79.82 Long term (current) use of aspirin; Z79.02 Long term (current) use of antithrombotics/antiplatelets; Z88.8 Allergy status to other drugs, medicaments and biological substances
CPT/HCPCS: 82948; J1030; J2250; J3010; S0020

== ENCOUNTER 2018-01-02 07:51 | Day surgery (SDC) | payer OTHER ==
[~2018-01-02] VITALS: Ht 182.9 cm; Wt 90.7 kg
== END 2018-01-02 08:46 | disposition home or self-care (01) ==
LOC: PAIN 07:51 → SDC 08:30 → PAIN 08:30
PROVIDERS: Anesthesiology Pain Medicine
PROC: 3E0T3TZ Introduction of Destructive Agent into Peripheral Nerves and Plexi, Percutaneous Approach (ICD-10-PCS; principal; 2018-01-02)
PROC: B01B0ZZ Fluoroscopy of Spinal Cord using High Osmolar Contrast (ICD-10-PCS; principal; 2018-01-02)
DX: M47.812 Spondylosis without myelopathy or radiculopathy, cervical region (principal); M43.02 Spondylolysis, cervical region; M46.92 Unspecified inflammatory spondylopathy, cervical region; M50.20 Other cervical disc displacement, unspecified cervical region; Z87.891 Personal history of nicotine dependence; M54.12 Radiculopathy, cervical region; R56.9 Unspecified convulsions; B20 Human immunodeficiency virus [HIV] disease; I10 Essential (primary) hypertension; Z79.891 Long term (current) use of opiate analgesic; F10.21 Alcohol dependence, in remission; Z79.82 Long term (current) use of aspirin
CPT/HCPCS: 82948; J1030; J2250; J3010; S0020